=== PATIENT | male | born 1955 | race Caucasian/White ===

== ENCOUNTER → 2018-03-23 | Outpatient (CLI) | payer OTHER | LOC: FIMAGING 07:11 | PROVIDERS: ATTEND Family Medicine | DX: R22.41 Localized swelling, mass and lump, right lower limb (principal) ==

== ENCOUNTER → 2018-04-03 | Outpatient (CLI) | payer OTHER ==
[~2018-04-03] MED LIST: GADOBUTROL 10 ML VIAL IVP ONE
== END ==
LOC: FIMAGING 06:37
PROVIDERS: ATTEND Family Medicine
DX: R22.41 Localized swelling, mass and lump, right lower limb (principal)
CPT/HCPCS: A9585